=== PATIENT | female | born 1940 | race Asian ===

== ENCOUNTER 2024-06-03 07:13 | Inpatient (IN) | payer BC, OTHER ==
[2024-06-03] MEDS ORDERED: ACETAMINOPHEN INJECTION 100 ML ONE (08:02)
[2024-06-03] MEDS: ACETAMINOPHEN 1000 MG/100 ML BAG IVPB ONE (08:35)
[2024-06-03 08:41] LABS: ABSOLUTE IMMATURE GRANULOCYTES 0.05 x10^3/uL (0.0-0.031); BASOPHILS # 0.01 x10^3/uL (0.01-0.08); HEMATOCRIT 35.1 % (34.1-44.9); HEMOGLOBIN 11.5 g/dL (11.2-15.7); MCHC 32.8 g/dl (32.2-35.5); MEAN PLT VOLUME 9.7 fl (9.4-12.3); MONOCYTE # 0.78 x10^3/uL (0.24-0.86); MONOCYTE % 7.1 % (4.7-12.5); PLATELET COUNT 311 x10^3/uL (182-369); RDW 12.2 % (12.5-17.0)
[2024-06-03 08:58] LABS: POTASSIUM 4.6 mmol/L (3.5-5.1)
[2024-06-03 08:59] LABS: INR 1.02 (0.83-1.09); PROTHROMBIN TIME (PATIENT) 11.1 SEC (9.7-13.0)
[2024-06-03 09:01] LABS: ACTIVATED PTT 30.3 SECONDS (25.2-36.5)
[2024-06-03 09:02] LABS: BLOOD UREA NITROGEN 23.2 mg/dL (7-18); CALCIUM 9.6 mg/dL (8.5-10.1)
[2024-06-03 09:06] LABS: CREATININE 0.8 mg/dL (0.55-1.3)
[2024-06-03 09:07] LABS: BILIRUBIN,TOTAL 0.7 mg/dL (0.2-1)
[2024-06-03 09:08] LABS: TOT PROT 7.5 g/dl (6.4-8.2)
[2024-06-03] MEDS ORDERED: MORPHINE SULFATE 2 MG/ML SYRINGE ONE (09:21)
[2024-06-03] MEDS: morphine CARPU-JECT 2 MG/1 ML DISP.SYRIN IVPUSH ONE (09:33)
[2024-06-03] MEDS ORDERED: ACETAMINOPHEN 1000 MG/100 ML BAG IVPB PRN (11:16)
[2024-06-03] MEDS ORDERED: KETOROLAC TROMETHAMINE 30 MG/1 ML VIAL IVPUSH PRN (11:17)
[2024-06-03] MEDS ORDERED: POLYETHYLENE GLYCOL (HEALTHYLAX) 3350 17 GM PACKET PO PRN (11:45)
[2024-06-03] MEDS: SERTRALINE HCL 25 MG TABLET (FP) PO SCH (13:23)
[2024-06-03] MEDS: oxyCODONE HCL 5 MG TABLET PO PRN (15:26)
[2024-06-03] MEDS: ACETAMINOPHEN 1000 MG/100 ML BAG IVPB SCH (16:17)
[2024-06-03] MEDS: GABAPENTIN 300 MG CAPSULE PO SCH (21:31)
[2024-06-04 08:53] LABS: HEMATOCRIT 29.3 % (34.1-44.9); HEMOGLOBIN 9.8 g/dL (11.2-15.7); MCHC 33.4 g/dl (32.2-35.5); MEAN CELL VOLUME 100.3 fl (79.4-94.8); MEAN PLT VOLUME 9.5 fl (9.4-12.3); PLATELET COUNT 253 x10^3/uL (182-369)
[2024-06-04 09:03] LABS: INR 1.07 (0.83-1.09); PROTHROMBIN TIME (PATIENT) 11.8 SEC (9.7-13.0)
[2024-06-04 09:16] LABS: POTASSIUM 4.2 mmol/L (3.5-5.1)
[2024-06-04 09:17] LABS: CALCIUM 8.8 mg/dL (8.5-10.1)
[2024-06-04 09:18] LABS: BLOOD UREA NITROGEN 24.1 mg/dL (7-18)
[2024-06-04 09:21] LABS: CREATININE 0.7 mg/dL (0.55-1.3); PHOSPHOROUS 3.7 mg/dL (2.5-4.9)
[2024-06-04] MEDS: SOLIFENACIN SUCCINATE 5 MG TAB PO SCH (10:01)
[2024-06-04] MEDS ORDERED: ACETAMINOPHEN INJECTION 100 ML ONE (13:32)
[2024-06-04] MEDS ORDERED: SUCCINYLCHOLINE CHLORIDE 200 MG/10 ML SYRINGE ONE (13:37)
[2024-06-04] MEDS ORDERED: PROPOFOL 60 ML ONE (13:39)
[2024-06-04] MEDS: ceFAZolin SODIUM 1 GM VIAL IVPB ONE (14:30)
[2024-06-04] MEDS: LIPASE/PROTEASE/AMYLASE 24,000 UNIT CAPSULE PO SCH ×2 (16:39→17:29)
[2024-06-04] MEDS ORDERED: POLYETHYLENE GLYCOL (HEALTHYLAX) 3350 17 GM PACKET PO PRN (17:15)
[2024-06-04] MEDS: GABAPENTIN 300 MG CAPSULE PO SCH (21:13)
[2024-06-04] MEDS ORDERED: diphenhydrAMINE HCL 50 MG CAPSULE PO PRN (22:20)
[2024-06-04] MEDS: SODIUM CHLORIDE 500 ML IV STA (22:22)
[2024-06-04] MEDS: CEFAZOLIN 1 GM/D5W 1 GM/50 ML BAG IVPB SCH (23:17)
[2024-06-05] MEDS: SODIUM CHLORIDE 1,000 ML IV SCH (00:21)
[2024-06-05] MEDS: ACETAMINOPHEN 500 MG TABLET (FP) PO PRN (06:07)
[2024-06-05 09:10] LABS: ABSOLUTE IMMATURE GRANULOCYTES 0.09 x10^3/uL (0.0-0.031); EOSINOPHIL % 0.2 % (0.7-5.8); EOSINOPHILS # 0.03 x10^3/uL (0.04-0.36); HEMATOCRIT 21.7 % (34.1-44.9); HEMOGLOBIN 7.2 g/dL (11.2-15.7); MCHC 33.2 g/dl (32.2-35.5); MEAN CELL VOLUME 100.9 fl (79.4-94.8); MEAN PLT VOLUME 9.9 fl (9.4-12.3); MONOCYTE # 1.21 x10^3/uL (0.24-0.86); MONOCYTE % 8.6 % (4.7-12.5); PLATELET COUNT 207 x10^3/uL (182-369); RDW 12.2 % (12.5-17.0)
[2024-06-05 09:32] LABS: POTASSIUM 4.5 mmol/L (3.5-5.1)
[2024-06-05 09:41] VITALS: BMI 18.3
[2024-06-05 09:42] LABS: BLOOD UREA NITROGEN 30.5 mg/dL (7-18)
[2024-06-05 09:46] LABS: PHOSPHOROUS 3.6 mg/dL (2.5-4.9)
[2024-06-05 09:47] LABS: BILIRUBIN,TOTAL 0.6 mg/dL (0.2-1)
[2024-06-05 09:50] LABS: ALBUMIN 2.6 g/dl (3.4-5.0); TOT PROT 5.3 g/dl (6.4-8.2)
[2024-06-05] MEDS: SERTRALINE HCL 25 MG TABLET (FP) PO SCH (10:05)
[2024-06-05] MEDS: ASPIRIN COATED 81 MG TABLET.EC PO SCH (10:05)
[2024-06-05] MEDS: SOLIFENACIN SUCCINATE 5 MG TAB PO SCH (10:05)
[2024-06-05] MEDS: ENOXAPARIN NA (PORCINE) 30 MG/0.3 ML DISP.SYRIN SQ SCH (10:06)
[2024-06-05] MEDS: CELECOXIB 200 MG CAPSULE PO SCH (11:13)
[2024-06-05 12:07] LABS: HEMATOCRIT 21.9 % (34.1-44.9); HEMOGLOBIN 7.3 g/dL (11.2-15.7); MCHC 33.3 g/dl (32.2-35.5); MEAN CELL VOLUME 101.4 fl (79.4-94.8); MEAN PLT VOLUME 9.8 fl (9.4-12.3); PLATELET COUNT 221 x10^3/uL (182-369); RDW 12.2 % (12.5-17.0)
[2024-06-05 18:29] LABS: HEMATOCRIT 24.1 % (34.1-44.9); HEMOGLOBIN 8.4 g/dL (11.2-15.7); MCHC 34.9 g/dl (32.2-35.5); MEAN CELL VOLUME 94.1 fl (79.4-94.8); MEAN PLT VOLUME 9.8 fl (9.4-12.3); PLATELET COUNT 189 x10^3/uL (182-369); RDW 15.1 % (12.5-17.0)
[2024-06-05] MEDS: SODIUM CHLORIDE 500 ML IV STA (20:50)
[2024-06-05] MEDS: oxyCODONE HCL 5 MG TABLET PO PRN (21:20)
[2024-06-05] MEDS: MIDODRINE HCL 5 MG TABLET PO ONE (22:34)
[2024-06-05 23:58] LABS: EPI CELLS 7 /uL (0-25.1); HYALINE CASTS 0 /uL (0-3.1); PH,URINE 5.5 (5.0-8.0); URINE APPEARANCE CLEAR; URINE BACTERIA 7 /uL (0-1359); URINE BILIRUBIN NEGATIVE (NEGATIVE); URINE COLOR YELLOW; URINE GLUCOSE (UA) NEGATIVE (NEGATIVE); URINE KETONE NEGATIVE (NEGATIVE); URINE LEUK ESTERASE TRACE (NEGATIVE); URINE NITRITE NEGATIVE (NEGATIVE); URINE PROTEIN NEGATIVE (NEGATIVE); URINE RBC 4 /uL (0-23.9); URINE UROBILINOGEN 0.2 mg/dL (0.2-1.0)
[2024-06-06 04:14] VITALS: RESP 18
[2024-06-06 08:11] LABS: ABSOLUTE IMMATURE GRANULOCYTES 0.12 x10^3/uL (0.0-0.031); BASOPHILS # 0.01 x10^3/uL (0.01-0.08); EOSINOPHIL % 0.8 % (0.7-5.8); EOSINOPHILS # 0.13 x10^3/uL (0.04-0.36); HEMATOCRIT 24.8 % (34.1-44.9); HEMOGLOBIN 8.5 g/dL (11.2-15.7); MCHC 34.3 g/dl (32.2-35.5); MEAN PLT VOLUME 9.6 fl (9.4-12.3); MONOCYTE # 1.37 x10^3/uL (0.24-0.86); MONOCYTE % 8.7 % (4.7-12.5); PLATELET COUNT 204 x10^3/uL (182-369)
[2024-06-06 08:31] LABS: POTASSIUM 4.1 mmol/L (3.5-5.1)
[2024-06-06 08:38] LABS: ALBUMIN 2.7 g/dl (3.4-5.0); BLOOD UREA NITROGEN 23.7 mg/dL (7-18); CALCIUM 8.3 mg/dL (8.5-10.1)
[2024-06-06 08:41] LABS: CREATININE 0.7 mg/dL (0.55-1.3)
[2024-06-06 08:42] LABS: PHOSPHOROUS 2.2 mg/dL (2.5-4.9)
[2024-06-06 08:43] LABS: TOT PROT 5.5 g/dl (6.4-8.2)
[2024-06-06] MEDS: NAPH,MB-DB/K PH,MBDB POWDER PACKET PO ONE ×2 (10:13→13:25)
[2024-06-06] MEDS ORDERED: oxyCODONE HCL 5 MG TABLET PO PRN (10:38)
[2024-06-06] MEDS ORDERED: MIDODRINE HCL 5 MG TABLET PO ONE (22:11)
[2024-06-07 10:19] VITALS: TEMP 98
[2024-06-07 14:45] VITALS: BP 120/64; PULSE 66
== END 2024-06-07 14:15 | DRG 481 ==
LOC: JER 07:13 → JERBED 09:45 → J6S 11:58
PROVIDERS: ADMIT Internal Medicine; ATTEND Internal Medicine
PROC: 0QS804Z Reposition Right Femoral Shaft with Internal Fixation Device, Open Approach (ICD-10-PCS; principal; 2024-06-04 14:00)
PROC: 30233N1 Transfusion of Nonautologous Red Blood Cells into Peripheral Vein, Percutaneous Approach (ICD-10-PCS; 2024-06-05)
DX: S72.301A Unspecified fracture of shaft of right femur, initial encounter for closed fracture (principal); D62 Acute posthemorrhagic anemia; M81.0 Age-related osteoporosis without current pathological fracture; F32.A Depression, unspecified; W19.XXXA Unspecified fall, initial encounter; Y93.89 Activity, other specified; Y92.009 Unspecified place in unspecified non-institutional (private) residence as the place of occurrence of the external cause; Y99.8 Other external cause status; K86.89 Other specified diseases of pancreas
CPT/HCPCS: 0241U-QW; 36415; 36430; 71045-TC-FY; 73502-TC-RT-FY; 73552-TC-LT-FY; 73552-TC-RT-FY; 73562-TC-RT-FY; 76000-TC-FY; 80048; 80053; 81003; 83735; 84100; 85025; 85027; 85610; 85730; 86850; 86900; 86901; 86922; 87040; 93005; 93010; 94760; 97116-GP; 99285-25; C1713; J0131; P9058